=== PATIENT | male | born 1990 | race African-American/Black ===

== ENCOUNTER 2018-09-24 16:35 | Emergency (ER) | payer SELFPAY ==
[~2018-09-24] VITALS: Ht 170.2 cm; Wt 55.2 kg
[2018-09-24 16:52] VITALS: BP 110/71
[2018-09-24] MEDS ORDERED: IBUPROFEN 200 MG TABLET PO ONE (17:30)
[2018-09-24] MEDS ORDERED: IBUPROFEN 200 MG TABLET ONE (17:41)
== END 2018-09-24 17:57 | disposition home or self-care (01) ==
LOC: ED 17:55
DX: S39.012A Strain of muscle, fascia and tendon of lower back, initial encounter (principal); V49.49XA Driver injured in collision with other motor vehicles in traffic accident, initial encounter; Y93.89 Activity, other specified; Y92.89 Other specified places as the place of occurrence of the external cause; Y99.8 Other external cause status
CPT/HCPCS: 72110; 99284